=== PATIENT | female | born 1985 | race Caucasian/White ===

== ENCOUNTER → 2018-02-22 | Outpatient (CLI) | payer BC ==
--- NOTE | 2018-02-23 07:33 | US ---
EXAMINATION TYPE: US thyroid st tissue head/neck DATE OF EXAM: 02/22/2018 COMPARISON: NONE CLINICAL HISTORY: E04.1 Goiter. GLAND SIZE: Right Lobe: 5.4 x 1.5 x 1.9 cm Overall Parenchyma: homogenous Left Lobe: 5.3 x 1.1 x 1.6 cm Overall Parenchyma: homogeneous Isthmus Thickness: 0.1 cm NODULES RIGHT: # of nodules measured on right: 0 LEFT: # of nodules measured on left: 0 ISTHMUS: # of nodules measured in the isthmus: 0 Bilateral neck scanned, no evidence of lymphadenopathy. Bilateral enlargement in sagittal view of thyroid gland IMPRESSION: Mildly enlarged homogeneous thyroid gland without measurable nodule.
== END | disposition home or self-care (01) ==
LOC: RADUSWWP 15:33
PROVIDERS: ATTEND Family Medicine
DX: E04.9 Nontoxic goiter, unspecified (principal)
CPT/HCPCS: 76536

== ENCOUNTER → 2018-03-06 | Outpatient (CLI) | payer BC ==
--- NOTE | 2018-03-07 09:40 | MM ---
Reason for exam: screening (asymptomatic). Baseline mammogram. History: Took hormonal contraceptives beginning at age 13. Physical Findings: Nurse Summary: 2cm nodule in the right breast at 10-11 o'clock (nurse dewey). MG 3D Screening Mammo W/Cad Bilateral CC and MLO view(s) were taken. The breast tissue is heterogeneously dense. This may lower the sensitivity of mammography. Finding: There is a typically benign circumscribed oval masses in the right upper outer quadrant at posterior depth and left lower inner quadrant at middle depth. Ultrasound will be performed. These results were verbally communicated with the patient and result sheet given to the patient on 03/06/18. ASSESSMENT: Incomplete: need additional imaging evaluation, BI-RAD 0 RECOMMENDATION: Ultrasound of both breasts.
--- NOTE | 2018-03-07 09:41 | USB ---
Reason for exam: additional evaluation requested from abnormal screening. History: Took hormonal contraceptives beginning at age 13. US Breast Workup Limited ELFEGO Right limited breast ultrasound including focal area of concern, retroareolar and axilla demonstrates a 5 x 3 x 7mm oval, mixed lesion at 12 o'clock, appears as a cystic cluster. Left limited breast ultrasound including focal area of concern, retroareolar and axilla demonstrates a 9 x 4 x 8mm lobular, cystic lesion at 8 o'clock. These results were verbally communicated with the patient and result sheet given to the patient on 03/06/18. ASSESSMENT: Benign, BI-RAD 2 RECOMMENDATION: Routine screening mammogram of both breasts in 1 year.
== END | disposition home or self-care (01) ==
LOC: RADMAMWWP 14:16
PROVIDERS: ATTEND Family Medicine
DX: Z12.31 Encounter for screening mammogram for malignant neoplasm of breast (principal); R92.8 Other abnormal and inconclusive findings on diagnostic imaging of breast
CPT/HCPCS: 77063; 77067

== ENCOUNTER 2019-07-17 11:42 | Emergency (ER) | payer BC ==
[2019-07-17 11:58] VITALS: RESP 18
[2019-07-17] MEDS ORDERED: ONDANSETRON 4 MG/2 ML VIAL IVP STA (12:09)
[2019-07-17] MEDS ORDERED: KETOROLAC 30 MG/ML 1 ML VIAL IVP STA (12:09)
[2019-07-17] MEDS ORDERED: MORPHINE SULFATE 2 MG/ML SYRINGE IVP STA (12:09)
[2019-07-17] MEDS ORDERED: PANTOPRAZOLE 40 MG/10 ML VIAL IVP STA (12:09)
[2019-07-17] MEDS ORDERED: SODIUM CHLORIDE 0.9% 1,000 ML IV STA (12:09)
--- NOTE | 2019-07-17 12:33 | ED ---
Back Pain HPI - General Chief Complaint: Back Pain/Injury Stated Complaint: back pain and abd pain Time Seen by Provider: 07/17/19 12:00 Source: patient, RN notes reviewed, old records reviewed Limitations: no limitations - History of Present Illness Initial Comments: Patient is a 34-year-old female presents emergency room chief complaint of right lower abdominal pain with radiation towards her back for the past 2 days. Patient states that she started to have some diarrhea night. Patient states that now she is having nausea. She states the pain seems to be colicky in aníbal ure. - Related Data Previous Rx's Medication Instructions Recorded Ibuprofen [Motrin] 600 mg PO Q8HR PRN #20 tab 07/17/19 Ondansetron Odt [Zofran Odt] 4 mg PO Q8HR PRN #12 tab 07/17/19 Tamsulosin [Flomax] 0.4 mg PO DAILY #7 cap 07/17/19 Allergies Allergy/AdvReac Type Severity Reaction Status Date / Time No Known Allergies Allergy Verified 07/17/19 11:58 Review of Systems ROS Statement: Those systems with pertinent positive or pertinent negative responses have been documented in the HPI. ROS Other: All systems not noted in ROS Statement are negative. Past Medical History Additional Past Medical History / Comment(s): pre-diabetic History of Any Multi-Drug Resistant Organisms: None Reported Past Surgical History: Tubal Ligation Additional Past Surgical History / Comment(s): ankle Smoking Status: Current every day smoker Past Alcohol Use History: None Reported Past Drug Use History: None Reported General Exam - General Exam Comments Initial Comments: 34 year old female, no distress. Limitations: no limitations General appearance: alert, in no apparent distress Head exam: Present: atraumatic, normocephalic, normal inspection Eye exam: Present: normal appearance, PERRL, EOMI. Absent: scleral icterus, conjunctival injection, periorbital swelling ENT exam: Present: normal exam, mucous membranes moist Neck exam: Present: normal inspection. Absent: tenderness, meningismus, lymphadenopathy Respiratory exam: Present: normal lung sounds bilaterally. Absent: respiratory distress, wheezes, rales, rhonchi, stridor Cardiovascular Exam: Present: regular rate, normal rhythm, normal heart sounds. Absent: systolic murmur, diastolic murmur, rubs, gallop, clicks GI/Abdominal exam: Present: soft, tenderness (RLQ tenderness), normal bowel sounds. Absent: distended, guarding, rebound, rigid Extremities exam: Present: normal inspection, full ROM, normal capillary refill. Absent: tenderness, pedal edema, joint swelling, calf tenderness Back exam: Present: CVA tenderness (R) Neurological exam: Present: alert, oriented X3, CN II-XII intact Psychiatric exam: Present: normal affect, normal mood Skin exam: Present: warm, dry, intact, normal color. Absent: rash Course Vital Signs 07/17/19 07/17/19 07/17/19 11:54 13:30 14:09 Temperature 98.4 F 99.0 F Pulse Rate 69 65 69 Respiratory 18 18 18 Rate Blood Pressure 125/83 110/78 107/69 O2 Sat by Pulse 100 99 99 Oximetry Medical Decision Making - Medical Decision Making 34 year old female presents today with Right lower abdominal pain with radition to the back. PAtient at this time has normal labs, except UA is positive for blood. Patient had CT scan and shows evidence of a 2mm Right UPJ stone. Patient pain is diminished after pain meds, and resting in bed.She appears in no distress. Patient given flomax, antiflammatory and pain medication for discharge. Instructed on return parameters and urology follow up. - Lab Data Result diagrams: 07/17/19 12:13 07/17/19 12:13 Lab Results 07/17/19 07/17/19 07/17/19 Range/Units 12:13 12:13 12:13 WBC 9.5 (3.8-10.6) k/uL RBC 4.53 (3.80-5.40) m/uL Hgb 14.3 (11.4-16.0) gm/dL Hct 42.7 (34.0-46.0) % MCV 94.3 (80.0-100.0) fL MCH 31.6 (25.0-35.0) pg MCHC 33.6 (31.0-37.0) g/dL RDW 12.6 (11.5-15.5) % Plt Count 267 (150-450) k/uL Neutrophils % 76 % Lymphocytes % 17 % Monocytes % 5 % Eosinophils % 1 % Basophils % 1 % Neutrophils # 7.2 (1.3-7.7) k/uL Lymphocytes # 1.6 (1.0-4.8) k/uL Monocytes # 0.5 (0-1.0) k/uL Eosinophils # 0.1 (0-0.7) k/uL Basophils # 0.1 (0-0.2) k/uL PT (9.0-12.0) sec INR (<1.2) APTT (22.0-30.0) sec Sodium (137-145) mmol/L Potassium (3.5-5.1) mmol/L Chloride (98-107) mmol/L Carbon Dioxide (22-30) mmol/L Anion Gap mmol/L BUN (7-17) mg/dL Creatinine (0.52-1.04) mg/dL Est GFR (CKD-EPI)AfAm (>60 ml/min/1.73 sqM) Est GFR (CKD-EPI)NonAf (>60 ml/min/1.73 sqM) Glucose (74-99) mg/dL Calcium (8.4-10.2) mg/dL Total Bilirubin (0.2-1.3) mg/dL AST (14-36) U/L ALT (4-34) U/L Alkaline Phosphatase (38-126) U/L Total Protein (6.3-8.2) g/dL Albumin (3.5-5.0) g/dL Amylase (30-110) U/L Lipase (23-300) U/L HCG, Quant mIU/mL Urine Color Light Red Urine Appearance Cloudy H (Clear) Urine pH 5.5 (5.0-8.0) Ur Specific [place] 1.022 (1.001-1.035) Urine Protein 1+ H (Negative) Urine Glucose (UA) Negative (Negative) Urine Ketones Negative (Negative) Urine Blood Large H (Negative) Urine Nitrite Negative (Negative) Urine Bilirubin Negative (Negative) Urine Urobilinogen <2.0 (<2.0) mg/dL Ur Leukocyte Esterase Small H (Negative) Urine RBC >182 H (0-5) /hpf Urine WBC 23 H (0-5) /hpf Ur Squamous Epith Cells 11 H (0-4) /hpf Urine Bacteria Rare H (None) /hpf Urine Mucus Few H (None) /hpf Urine HCG, Qual Not Detected (Not Detectd) 04/29/20 04/29/20 Range/Units 12:13 12:13 WBC (3.8-10.6) k/uL RBC (3.80-5.40) m/uL Hgb (11.4-16.0) gm/dL Hct (34.0-46.0) % MCV (80.0-100.0) fL MCH (25.0-35.0) pg MCHC (31.0-37.0) g/dL RDW (11.5-15.5) % Plt Count (150-450) k/uL Neutrophils % % Lymphocytes % % Monocytes % % Eosinophils % % Basophils % % Neutrophils # (1.3-7.7) k/uL Lymphocytes # (1.0-4.8) k/uL Monocytes # (0-1.0) k/uL Eosinophils # (0-0.7) k/uL Basophils # (0-0.2) k/uL PT 9.5 (9.0-12.0) sec INR 0.9 (<1.2) APTT 25.0 (22.0-30.0) sec Sodium 137 (137-145) mmol/L Potassium 4.1 (3.5-5.1) mmol/L Chloride 106 (98-107) mmol/L Carbon Dioxide 22 (22-30) mmol/L Anion Gap 9 mmol/L BUN 12 (7-17) mg/dL Creatinine 0.88 (0.52-1.04) mg/dL Est GFR (CKD-EPI)AfAm >90 (>60 ml/min/1.73 sqM) Est GFR (CKD-EPI)NonAf 85 (>60 ml/min/1.73 sqM) Glucose 117 H (74-99) mg/dL Calcium 9.4 (8.4-10.2) mg/dL Total Bilirubin 0.6 (0.2-1.3) mg/dL AST 34 (14-36) U/L ALT 47 H (4-34) U/L Alkaline Phosphatase 84 (38-126) U/L Total Protein 7.5 (6.3-8.2) g/dL Albumin 4.5 (3.5-5.0) g/dL Amylase 38 (30-110) U/L Lipase 43 (23-300) U/L HCG, Quant <2.4 mIU/mL Urine Color Urine Appearance (Clear) Urine pH (5.0-8.0) Ur Specific [place] (1.001-1.035) Urine Protein (Negative) Urine Glucose (UA) (Negative) Urine Ketones (Negative) Urine Blood (Negative) Urine Nitrite (Negative) Urine Bilirubin (Negative) Urine Urobilinogen (<2.0) mg/dL Ur Leukocyte Esterase (Negative) Urine RBC (0-5) /hpf Urine WBC (0-5) /hpf Ur Squamous Epith Cells (0-4) /hpf Urine Bacteria (None) /hpf Urine Mucus (None) /hpf Urine HCG, Qual (Not Detectd) - Radiology Data Radiology results: report reviewed Bilateral small renal calculi with 2mm obstructing calculus at right UPJ causing mild to moderate right hydronephrosis. Disposition Clinical Impression: Ureteral stone Disposition: HOME SELF-CARE Condition: Good Instructions (If sedation given, give patient instructions): Ureteral Stones (ED) Additional Instructions: Patient is a close follow-up with primary care physician. Encourage fluid intake. Take the medications as prescribed. Return to ED if any alarming signs or symptoms occur. Prescriptions: Tamsulosin [Flomax] 0.4 mg PO DAILY #7 cap Ibuprofen [Motrin] 600 mg PO Q8HR PRN #20 tab PRN Reason: Pain Ondansetron Odt [Zofran Odt] 4 mg PO Q8HR PRN #12 tab PRN Reason: Nausea And Vomiting Is patient prescribed a controlled substance at d/c from ED?: No Referrals: Mushtaq Alaniz MD [Primary Care Provider] - 1-2 days Mik Jones MD [STAFF PHYSICIAN] - 1-2 days Time of Disposition: 13:35
[2019-07-17] MEDS: SODIUM CHLORIDE 0.9% 1,000 ML IV STA ×2 (12:34→14:01)
[2019-07-17 12:35] LABS: Appearance,Urine Cloudy (Clear); Bacteria,Urine Rare /hpf; Bilirubin,Urine Negative (Negative); Blood,Urine Large (Negative); Color,Urine Light Red; Glucose,Urine (UA) Negative (Negative); Ketones,Urine Negative (Negative); Leukocyte Esterase,Urine Small (Negative); Mucus,Urine Few /hpf; Nitrite,Urine Negative (Negative); PH, Urine 5.5 (5.0-8.0); Protein,Urine 1+ (Negative); RBC,Urine >182 /hpf (0-5); Specific Gravity,Urine 1.022 (1.001-1.035); Squamous Epithelial Cell,Urine 11 /hpf (0-4); Urobilinogen,Urine <2.0 mg/dL (<2.0); WBC,Urine 23 /hpf (0-5)
[2019-07-17 12:47] LABS: Basophils # (A) 0.1 k/uL (0-0.2); Basophils % (A) 1 %; Eosinophils # (A) 0.1 k/uL (0-0.7); Eosinophils % (A) 1 %; HCT 42.7 % (34.0-46.0); HGB 14.3 gm/dL (11.4-16.0); Lymphocytes # (A) 1.6 k/uL (1.0-4.8); Lymphocytes % (A) 17 %; MCH 31.6 pg (25.0-35.0); MCHC 33.6 g/dL (31.0-37.0); MCV 94.3 fL (80.0-100.0); Mean Platelet Volume 7.5; Monocytes # (A) 0.5 k/uL (0-1.0); Monocytes % (A) 5 %; Neutrophils # (A) 7.2 k/uL (1.3-7.7); Neutrophils % (A) 76 %; Platelet Count 267 k/uL (150-450); RBC 4.53 m/uL (3.80-5.40); RDW 12.6 % (11.5-15.5); WBC 9.5 k/uL (3.8-10.6)
[2019-07-17 12:57] LABS: ALT 47 U/L (4-34); AST 34 U/L (14-36); African American GFR (CKD) >90 (>60 ml/min/1.73 sqM); Albumin 4.5 g/dL (3.5-5.0); Alkaline Phosphatase 84 U/L (38-126); Amylase 38 U/L (30-110); Anion Gap 9 mmol/L; Blood Urea Nitrogen 12 mg/dL (7-17); Calcium 9.4 mg/dL (8.4-10.2); Carbon Dioxide 22 mmol/L (22-30); Chloride 106 mmol/L (98-107); Glucose 117 mg/dL (74-99); Non-African American GFR(CKD) 85 (>60 ml/min/1.73 sqM); Potassium 4.1 mmol/L (3.5-5.1); Sodium 137 mmol/L (137-145); Total Bilirubin 0.6 mg/dL (0.2-1.3); Total Protein 7.5 g/dL (6.3-8.2)
[2019-07-17 13:05] LABS: INR 0.9 (<1.2); Prothrombin Time 9.5 sec (9.0-12.0)
--- NOTE | 2019-07-17 13:06 | CT ---
EXAMINATION TYPE: CT abdomen pelvis wo con DATE OF EXAM: 07/17/2019 HISTORY: RLQ pain and right flank pain. CT DLP: 702.6 mGycm. Automated Exposure Control for Dose Reduction was Utilized. TECHNIQUE: CT scan of the abdomen and pelvis is performed without oral or IV contrast. COMPARISON: NONE FINDINGS: Within the limitations of a non-contrast study, the following observations are made. LUNG BASES: No significant abnormality is appreciated. LIVER/GB: Heterogeneously hypodense liver measuring upper limits of normal in size consistent with di ffuse fatty infiltration. PANCREAS: No significant abnormality is seen. SPLEEN: No significant abnormality is seen. ADRENALS: No significant abnormality is seen. KIDNEYS: Roughly 6 calculi scattered throughout left kidney measuring up to 3 mm in size. There are 4 calculi throughout right kidney measuring between 2 to 3 mm. There is 2 mm calculus at right UVJ axi al image 141 causing mild to moderate right-sided pyelocaliectasis and diffuse hydroureter. No left-s ided hydronephrosis or obstructing urinary calculi. Occasional pelvic phleboliths. No additional calc ulus in the poorly distended bladder. BOWEL: Normal-appearing appendix from cecum. No suspicious small or large bowel dilatation. Mild wall thickening mid transverse colon in extends through distal sigmoid colon favored product of poor dist ention over mild uncomplicated acute colitis. Correlate clinically. GENITAL ORGANS: Slightly retroverted uterus with lobulation and prominence suggesting fibroid uterus. LYMPH NODES: No greater than 1cm abdominal or pelvic lymph nodes are appreciated. OSSEOUS STRUCTURES: Transitional type L6 vertebra at the lumbosacral junction. OTHER: No significant additional abnormality is seen. IMPRESSION: Bilateral small renal calculi with 2 mm obstructing calculus at right UPJ causing mild-to -moderate right-sided hydronephrosis.
[2019-07-17 13:13] LABS: HCG,Quantitative Serum <2.4 mIU/mL
[2019-07-17] MEDS ORDERED: ACET/COD 300 MG/30 MG STARTER PACK 6 TAB BTL PO STA (13:37)
[2019-07-17 14:10] VITALS: BP 107/69; PULSE 69; TEMP 99
== END 2019-07-17 14:08 | disposition home or self-care (01) ==
LOC: EC 11:42
DX: N20.1 Calculus of ureter (principal); F17.200 Nicotine dependence, unspecified, uncomplicated; Z98.51 Tubal ligation status
CPT/HCPCS: 36415; 80053; 82150; 83690; 85025; 85610; 85730; 81001; 81025; 84702; 87086; 74176; 99284; 96374; 96375 ×3; 96361; J2405; J1885; J2270; C9113

== ENCOUNTER → 2020-07-03 | Outpatient (CLI) | payer BC ==
--- NOTE | 2020-07-06 14:19 | MM ---
Reason for exam: screening (asymptomatic). Last mammogram was performed 2 years and 4 months ago. History: Family history of breast cancer in maternal aunt and breast cancer in maternal cousin. Took hormonal contraceptives beginning at age 13. Physical Findings: A clinical breast exam by your physician is recommended on an annual basis and results should be correlated with mammographic findings. MG 3D Screening Mammo W/Cad Bilateral CC and MLO view(s) were taken. Prior study comparison: March 06, 2018, bilateral MG 3d screening mammo w/cad. The breast tissue is heterogeneously dense. This may lower the sensitivity of mammography. Finding: There is a 8 mm obscured oval mass located 9 cm from the nipple in the outer quadrant, middle position of the right breast on MLO 35/86 and CC 31/78. There is a chronic nodularity in the left breast corresponds to 9 x 4mm thin walled cyst on 03/06/18 ultrasound, stable. New finding since March 06, 2018. ASSESSMENT: Incomplete: need additional imaging evaluation, BI-RAD 0 RECOMMENDATION: Ultrasound of the right breast. [facility] will attempt to contact patient to return for ultrasound.
== END | disposition home or self-care (01) ==
LOC: RADMAMWWP 10:51
PROVIDERS: ATTEND Family Medicine
DX: Z12.31 Encounter for screening mammogram for malignant neoplasm of breast (principal)
CPT/HCPCS: 77063; 77067

== ENCOUNTER → 2020-07-09 | Outpatient (CLI) | payer BC ==
--- NOTE | 2020-07-09 10:41 | USB ---
Reason for exam: additional evaluation requested from abnormal screening. History: Family history of breast cancer in maternal aunt and breast cancer in maternal cousin. Took hormonal contraceptives beginning at age 13. Physical Findings: Nurse did not find any significant physical abnormalities on exam. US Breast Workup Limited RT Right limited breast ultrasound including focal area of concern, retroareolar and axilla demonstrates a 0.6 x 0.3 x 0.7cm oval lesion too small to characterize, cystic cluster at 9 o'clock. These results were verbally communicated with the patient and result sheet given to the patient on 07/09/20. ASSESSMENT: Probably benign, BI-RAD 3 RECOMMENDATION: Follow-up diagnostic mammogram and ultrasound of the right breast in 6 months.
== END | disposition home or self-care (01) ==
LOC: RADUSWWP 09:00
PROVIDERS: ATTEND Family Medicine
DX: R92.8 Other abnormal and inconclusive findings on diagnostic imaging of breast (principal)

== ENCOUNTER → 2020-09-23 | Outpatient (CLI) | payer BC | END | disposition home or self-care (01) ==

== ENCOUNTER → 2020-11-16 | Outpatient (CLI) | payer BC ==
[2020-11-16 12:32] LABS: HCT 43.9 % (34.0-46.0); HGB 14.2 gm/dL (11.4-16.0); MCH 30.8 pg (25.0-35.0); MCHC 32.3 g/dL (31.0-37.0); MCV 95.4 fL (80.0-100.0); Mean Platelet Volume 7.9; Platelet Count 256 k/uL (150-450); RDW 13.1 % (11.5-15.5); WBC 8.8 k/uL (3.8-10.6)
== END | disposition home or self-care (01) ==
LOC: LABPAT 12:02
PROVIDERS: ATTEND Obstetrics & Gynecology
DX: Z01.812 Encounter for preprocedural laboratory examination (principal); N92.0 Excessive and frequent menstruation with regular cycle
CPT/HCPCS: 36415; 85027

== ENCOUNTER 2020-11-20 08:04 | Day surgery (SDC) | payer BC ==
[2020-11-16 15:25] VITALS: BMI 32.4
[~2020-11-20 08:04] MED LIST: DEXAMETHASONE SOD PHOSPHATE 4 MG/ML 1 ML VIAL IV ONE; HYDROmorphone 0.5 MG/0.5 ML SYRINGE IVP PRN; MIDAZOLAM 2 MG/2 ML VIAL IV PRN; ONDANSETRON 4 MG/2 ML VIAL IVP ONE; Pre Op ABX Message 1 EACH MISC MISCELLANE ONE; SCOPOLAMINE 1.5MG/72HR PATCH TRANSDERM ONE
[2020-11-20 08:49] LABS: Glucose,Whole Blood 132 mg/dL (75-99)
[2020-11-20] MEDS: LACTATED RINGERS 1,000 ML IV SCH ×2 (08:49→11:00)
[2020-11-20] MEDS ORDERED: fentaNYL (PF) 50 MCG/ML 2 ML AMP ONE (09:08)
[2020-11-20] MEDS ORDERED: LIDOCAINE 1% INJ 10MG/ML (20 ML MDV) ONE (09:08)
[2020-11-20] MEDS ORDERED: MIDAZOLAM 2 MG/2 ML VIAL ONE (09:08)
[2020-11-20] MEDS ORDERED: PROPOFOL 10 MG/ML 20 ML VIAL IV ONE (09:08)
[2020-11-20] MEDS ORDERED: KETOROLAC 15 MG/ML 1 ML VIAL ONE (09:08)
[2020-11-20 09:42] VITALS: TEMP 96.9
--- NOTE | 2020-11-20 09:42 | P.OP ---
Date of Procedure: 11/20/20 Preoperative Diagnosis: Hypermenorrhea, dysmenorrhea Postoperative Diagnosis: Same, normal-appearing uterine cavity Procedure(s) Performed: Hysteroscopy, NovaSure endometrial ablation Anesthesia: ADILENEA Surgeon: Colleen Burnette Estimated Blood Loss (ml): 20 IV fluids (ml): 350 Urine output (ml): 100 Pathology: none sent Condition: stable Disposition: PACU Description of Procedure: Patient is brought to the operating suite where a general anesthetic is administered without difficulty. She's placed in the dorsal lithotomy position. The perineal body cervix and vagina are prepped and draped in usual sterile fashion. The appropriate timeout is performed to assure proper patient and procedural identification. Urine hCG is negative. Bladder is drained for 100 mL of clear yellow urine. Examination under anesthesia reveals a retroverted uterus. Speculum is placed. Anterior lip of the cervix is grasped with a double-tooth tenaculum. Uterus sounds to a depth of 9 cm in the retroverted position. Cervix is gently and systematically dilated using Hanks dilators. The uterus sounds to a depth of 9 cm in the retroverted position. The hysteroscope was placed and the cavity is distended with sterile saline. The cavity is inspected and noted to contain a moderate amount of proliferative-type tissue. No obvious polyps or fibroids are noted. Hysteroscope was removed. NovaSure wand is placed and seated. The machine is properly calibrated and enabled. Uterine length of 6.5 cm, width of 4.3 cm. Power 154 W, for 75 seconds the procedure is carried out. When the machine turns off the wand is reduced and removed. Hysteroscope was once again placed. Cavity appears uniformly and thoroughly cauterized. Cervix is clean and dry upon completion of the procedure. All sponge needle and enhancement counts are correct. Toradol is given prior to leaving the operative suite. Patient is brought back to the recovery room in very good condition with stable vital signs including blood pressure 138/69, pulse 75, 99% O2 saturation. Patient will follow-up with me in the office in 2 weeks.
[2020-11-20 10:00] VITALS: RESP 16
[2020-11-20] MEDS ORDERED: HYDROcodone/APAP 5-325MG 1 EACH TAB ONE (10:50)
[2020-11-20] MEDS ORDERED: HYDROcodone/APAP 5-325MG 1 EACH TAB PO ONE (10:55)
[2020-11-20 11:06] VITALS: BP 139/84; PULSE 56
== END 2020-11-20 11:33 | disposition home or self-care (01) ==
LOC: OR 08:04
PROVIDERS: ATTEND Obstetrics & Gynecology
DX: N94.6 Dysmenorrhea, unspecified (principal); N92.0 Excessive and frequent menstruation with regular cycle; E11.9 Type 2 diabetes mellitus without complications; F17.200 Nicotine dependence, unspecified, uncomplicated; K58.9 Irritable bowel syndrome, unspecified
CPT/HCPCS: 58563; 81025; J2250; J1100; J2405; J2001; J3010; J1885; J2704

== ENCOUNTER 2022-08-07 20:45 | Emergency (ER) | payer BC ==
[2022-08-07 23:03] LABS: Basophils # (A) 0.1 k/uL (0-0.2); Basophils % (A) 1 %; Eosinophils # (A) 0.2 k/uL (0-0.7); Eosinophils % (A) 2 %; HCT 41.4 % (34.0-46.0); HGB 14.1 gm/dL (11.4-16.0); Lymphocytes # (A) 3.6 k/uL (1.0-4.8); Lymphocytes % (A) 34 %; MCH 31.5 pg (25.0-35.0); MCHC 34.2 g/dL (31.0-37.0); Mean Platelet Volume 7.5; Monocytes # (A) 0.5 k/uL (0-1.0); Monocytes % (A) 5 %; Neutrophils % (A) 57 %; Platelet Count 305 k/uL (150-450); RDW 12.2 % (11.5-15.5); WBC 10.5 k/uL (3.8-10.6)
[2022-08-07 23:34] LABS: ALT 26 U/L (4-34); AST 20 U/L (14-36); African American GFR (CKD) >90 (>60 ml/min/1.73 sqM); Albumin 4.4 g/dL (3.5-5.0); Alkaline Phosphatase 77 U/L (38-126); Anion Gap 12 mmol/L; Blood Urea Nitrogen 13 mg/dL (7-17); Calcium 9.5 mg/dL (8.4-10.2); Carbon Dioxide 25 mmol/L (22-30); Chloride 102 mmol/L (98-107); Glucose 108 mg/dL (74-99); Lipase 81 U/L (23-300); Non-African American GFR(CKD) 82 (>60 ml/min/1.73 sqM); Potassium 4.2 mmol/L (3.5-5.1); Sodium 139 mmol/L (137-145); Total Bilirubin 0.3 mg/dL (0.2-1.3); Total Protein 7.2 g/dL (6.3-8.2)
[2022-08-08 00:06] LABS: Appearance,Urine Clear (Clear); Bilirubin,Urine Negative (Negative); Blood,Urine Negative (Negative); Color,Urine Light Yellow; Glucose,Urine (UA) Negative (Negative); Ketones,Urine Negative (Negative); Leukocyte Esterase,Urine Negative (Negative); Nitrite,Urine Negative (Negative); PH, Urine 5.5 (5.0-8.0); Protein,Urine Negative (Negative); Specific Gravity,Urine 1.009 (1.001-1.035); Urobilinogen,Urine <2.0 mg/dL (<2.0)
--- NOTE | 2022-08-08 01:21 | US ---
EXAM: US Pelvis Transabdominal and Transvaginal, Complete and US Duplex Arterial/Venous of the Pelvis, Complete CLINICAL HISTORY: US Reason: right pelvic pain TECHNIQUE: Real-time complete transabdominal and transvaginal pelvic ultrasound with image documentation. Transvaginal imaging was used for better evaluation of the endometrium and adnexa. Real-time duplex ultrasound scan of the arterial and venous flow of the pelvis with color Doppler flow and spectral waveform analysis. COMPARISON: No relevant prior studies available. FINDINGS: Uterus/cervix: The uterus measures 7.2 x 5.2 x 5.6 cm, 108 mL and is anteverted. The myometrium is unremarkable. There is an approximately 2 cm diameter fluid pocket in the endometrial cavity demonstrating a hematocrit level suggesting hematometra. Right ovary: The right ovary measures 2.5 x 2.2 x 2.1 cm, 5.9 mL with normal appearance and normal Doppler blood flow. Left ovary: The left ovary measures 3.5 x 1.6 x 2.8 cm with normal Doppler blood flow normal appearance. Free fluid: No free fluid. Bladder: Unremarkable as visualized. Wall is normal thickness for degree of distention. IMPRESSION: There is an approximately 2 cm diameter fluid pocket in the endometrial cavity demonstrating a hematocrit level suggesting hematometra. Unremarkable appearance of the ovaries. No evidence of torsion. No free fluid.
[2022-08-08] MEDS ORDERED: ACET/COD 300 MG/30 MG STARTER PACK 6 TAB BTL PO STA (02:03)
--- NOTE | 2022-08-08 02:05 | ED ---
Abdominal Pain HPI - General Chief Complaint: Abdominal Pain Stated Complaint: Abdominal Pain Time Seen by Provider: 08/07/22 22:00 Source: patient Mode of arrival: ambulatory Limitations: no limitations - History of Present Illness Initial Comments: 37 year old female presents emergency department with right lower quadrant pain. States has been going on for the past 2 weeks. Started off intermittent and has now become constant. States that it is worse when she ambulates. She was taking Motrin which originally was helping however no longer provides any relief. She denies any vaginal bleeding or discharge. She has had an ablation approximately [address] Almanza. Denies any urinary complaints to include dysuria, hematuria or difficulty voiding. Denies black or bloody stools. No constipation or diarrhea. She denies fevers. No other alleviating, precipitating or modifying factors - Related Data Home Medications Medication Instructions Recorded Confirmed Cholecalciferol [Vitamin D3 (25 50 mcg PO HS 11/16/20 11/16/20 Mcg = 1000 Iu)] Fluticasone Nasal [place] [Flonase 1 spray EA NOSTRIL DAILY PRN 11/16/20 11/16/20 Nasal [place]] Loratadine [Claritin] 10 mg PO HS 11/16/20 11/16/20 clonazePAM 0.5 mg PO HS 11/16/20 11/16/20 Previous Rx's Medication Instructions Recorded Acetaminophen-Codeine 300-30mg 1 tab PO Q4H PRN 3 Days #18 tablet 08/08/22 [Tylenol w/codeine #3] Allergies Allergy/AdvReac Type Severity Reaction Status Date / Time adhesive Allergy Unknown Verified 08/07/22 22:03 Review of Systems ROS Statement: Those systems with pertinent positive or pertinent negative responses have been documented in the HPI. ROS Other: All systems not noted in ROS Statement are negative. Past Medical History Additional Past Medical History / Comment(s): pre-diabetic, kidney stones History of Any Multi-Drug Resistant Organisms: None Reported Past Surgical History: Orthopedic Surgery, Tubal Ligation, Uterine Ablation Additional Past Surgical History / Comment(s): rt ankle Past Psychological History: No Psychological Hx Reported Past Alcohol Use History: None Reported General Exam Limitations: no limitations General appearance: alert, in no apparent distress Head exam: Present: atraumatic, normocephalic, normal inspection Eye exam: Present: normal appearance, PERRL, EOMI. Absent: scleral icterus, conjunctival injection, periorbital swelling ENT exam: Present: normal exam, mucous membranes moist Neck exam: Present: normal inspection. Absent: tenderness, meningismus, lymphadenopathy Respiratory exam: Present: normal lung sounds bilaterally. Absent: respiratory distress, wheezes, rales, rhonchi, stridor Cardiovascular Exam: Present: regular rate, normal rhythm, normal heart sounds. Absent: systolic murmur, diastolic murmur, rubs, gallop, clicks GI/Abdominal exam: Present: soft, tenderness (rlq), normal bowel sounds. Absent: distended, guarding, rebound, rigid Extremities exam: Present: normal inspection, full ROM, normal capillary refill. Absent: tenderness, pedal edema, joint swelling, calf tenderness Back exam: Present: normal inspection Neurological exam: Present: alert, oriented X3, CN II-XII intact Psychiatric exam: Present: normal affect, normal mood Skin exam: Present: warm, dry, intact, normal color. Absent: rash Course Vital Signs 08/07/22 08/08/22 21:59 02:12 Temperature 97.9 F 98.4 F Pulse Rate 80 72 Respiratory 20 16 Rate Blood Pressure 116/84 121/76 O2 Sat by Pulse 100 97 Oximetry Medical Decision Making - Medical Decision Making Was pt. sent in by a medical professional or institution (MICHELE Cruz, WATER TRAINER, urgent care, hospital, or fpc...) When possible be specific @ -No Did you speak to anyone other than the patient for history (EMS, parent, family, police, friend...)? What history was obtained from this source @ -No Did you review nursing and triage notes (agree or disagree)? Why? @ -I reviewed and agree with nursing and triage notes Were old charts reviewed (outside hosp., previous admission, EMS record, old EKG, old radiological studies, urgent care reports/EKG's, fpc records)? Report findings @ -No old charts were reviewed Differential Diagnosis (chest pain, altered mental status, abdominal pain women, abdominal pain men, vaginal bleeding, weakness, fever, dyspnea, syncope, headache, dizziness, GI bleed, back pain, seizure, CVA, palpatations, mental health, musculoskeletal)? @ -appendicitis, ovarian torsion, ovarian cyst, ectopic , endometriosis EKG interpreted by me (3pts min.). @ -No X-rays interpreted by me (1pt min.). @ -None done CT interpreted by me (1pt min.). @ -None done U/S interpreted by me (1pt. min.). @ -yes What testing was considered but not performed or refused? (CT, X-rays, U/S, labs)? Why? @ -None What meds were considered but not given or refused? Why? @ -Pain meds - patient refused Did you discuss the management of the patient with other professionals (professionals i.e. , PA, WATER TRAINER, lab, RT, psych nurse, social worker assistant, manager new product, teacher, rating officer, director of casework department)? Give summary @ -No Was smoking cessation discussed for >3mins.? @ -No Was critical care preformed (if so, how long)? @ -No Were there social determinants of health that impacted care today? How? (Homelessness, low income, unemployed, alcoholism, drug addiction, transportation, low edu. Level, literacy, decrease access to med. care, skilled nursing, r ehab)? @ -No Was there de-escalation of care discussed even if they declined (Discuss DNR or withdrawal of care, Hospice)? DNR status @ -No What co-morbidities impacted this encounter? (DM, HTN, Smoking, COPD, CAD, Cancer, CVA, ARF, Chemo, Hep., AIDS, mental health diagnosis, sleep apnea, morbid obesity)? @ -None Was patient admitted / discharged? Hospital course, mention meds given and route, prescriptions, significant lab abnormalities, going to OR and other pertinent info. @ -Upon arrival patient was placed into room 4. A thorough history and physical exam was performed. IV access is established and laboratory studies are conducted. She is offered something for pain however she refuses. Laboratory studies are reviewed. Ultrasound demonstrates a 2 cm diameter fluid pocket in the endometrial cavity demonstrating a hematocrit level suggesting hematometra. This is discussed with the patient. At this time she will be discharged home. Did provide her with a prescription for Tylenol 3's. She will call and make an appointment with her BUSINESS MANAGEMENT ASSOCIATE for treatment and return for any new or worsening symptoms. Patient was agreeable with plan and she was discharged home stable condition. Undiagnosed new problem with uncertain prognosis? @ -No Drug Therapy requiring intensive monitoring for toxicity (Heparin, Nitro, Insulin, Cardizem)? @ -No Were any procedures done? @ -No Diagnosis/symptom? @ -acute rlq pain, acute hematometra Acute, or Chronic, or Acute on Chronic? @ -acute Uncomplicated (without systemic symptoms) or Complicated (systemic symptoms)? @ -complicated Side effects of treatment? @ -No Exacerbation, Progression, or Severe Exacerbation? @ -No Poses a threat to life or bodily function? How? (Chest pain, [place], [place], pneumonia, PE, COPD, DKA, ARF, appy, cholecystitis, CVA, Diverticulitis, Homicidal, Suicidal, threat to staff... and all critical care pts) @ -No - Lab Data Result diagrams: 08/07/22 22:45 08/07/22 22:45 Lab Results 08/07/22 08/07/22 08/07/22 Range/Units 22:45 22:45 23:10 WBC 10.5 (3.8-10.6) k/uL RBC 4.50 (3.80-5.40) m/uL Hgb 14.1 (11.4-16.0) gm/dL Hct 41.4 (34.0-46.0) % MCV 92.0 (80.0-100.0) fL MCH 31.5 (25.0-35.0) pg MCHC 34.2 (31.0-37.0) g/dL RDW 12.2 (11.5-15.5) % Plt Count 305 (150-450) k/uL MPV 7.5 Neutrophils % 57 % Lymphocytes % 34 % Monocytes % 5 % Eosinophils % 2 % Basophils % 1 % Neutrophils # 6.0 (1.3-7.7) k/uL Lymphocytes # 3.6 (1.0-4.8) k/uL Monocytes # 0.5 (0-1.0) k/uL Eosinophils # 0.2 (0-0.7) k/uL Basophils # 0.1 (0-0.2) k/uL Sodium 139 (137-145) mmol/L Potassium 4.2 (3.5-5.1) mmol/L Chloride 102 (98-107) mmol/L Carbon Dioxide 25 (22-30) mmol/L Anion Gap 12 mmol/L BUN 13 (7-17) mg/dL Creatinine 0.89 (0.52-1.04) mg/dL Est GFR (CKD-EPI)AfAm >90 (>60 ml/min/1.73 sqM) Est GFR (CKD-EPI)NonAf 82 (>60 ml/min/1.73 sqM) Glucose 108 H (74-99) mg/dL Calcium 9.5 (8.4-10.2) mg/dL Total Bilirubin 0.3 (0.2-1.3) mg/dL AST 20 (14-36) U/L ALT 26 (4-34) U/L Alkaline Phosphatase 77 (38-126) U/L Total Protein 7.2 (6.3-8.2) g/dL Albumin 4.4 (3.5-5.0) g/dL Lipase 81 (23-300) U/L Urine Color Light Yellow Urine Appearance Clear (Clear) Urine pH 5.5 (5.0-8.0) Ur Specific [place] 1.009 (1.001-1.035) Urine Protein Negative (Negative) Urine Glucose (UA) Negative (Negative) Urine Ketones Negative (Negative) Urine Blood Negative (Negative) Urine Nitrite Negative (Negative) Urine Bilirubin Negative (Negative) Urine Urobilinogen <2.0 (<2.0) mg/dL Ur Leukocyte Esterase Negative (Negative) Urine HCG, Qual (Not Detectd) 08/07/22 Range/Units 23:10 WBC (3.8-10.6) k/uL RBC (3.80-5.40) m/uL Hgb (11.4-16.0) gm/dL Hct (34.0-46.0) % MCV (80.0-100.0) fL MCH (25.0-35.0) pg MCHC (31.0-37.0) g/dL RDW (11.5-15.5) % Plt Count (150-450) k/uL MPV Neutrophils % % Lymphocytes % % Monocytes % % Eosinophils % % Basophils % % Neutrophils # (1.3-7.7) k/uL Lymphocytes # (1.0-4.8) k/uL Monocytes # (0-1.0) k/uL Eosinophils # (0-0.7) k/uL Basophils # (0-0.2) k/uL Sodium (137-145) mmol/L Potassium (3.5-5.1) mmol/L Chloride (98-107) mmol/L Carbon Dioxide (22-30) mmol/L Anion Gap mmol/L BUN (7-17) mg/dL Creatinine (0.52-1.04) mg/dL Est GFR (CKD-EPI)AfAm (>60 ml/min/1.73 sqM) Est GFR (CKD-EPI)NonAf (>60 ml/min/1.73 sqM) Glucose (74-99) mg/dL Calcium (8.4-10.2) mg/dL Total Bilirubin (0.2-1.3) mg/dL AST (14-36) U/L ALT (4-34) U/L Alkaline Phosphatase (38-126) U/L Total Protein (6.3-8.2) g/dL Albumin (3.5-5.0) g/dL Lipase (23-300) U/L Urine Color Urine Appearance (Clear) Urine pH (5.0-8.0) Ur Specific [place] (1.001-1.035) Urine Protein (Negative) Urine Glucose (UA) (Negative) Urine Ketones (Negative) Urine Blood (Negative) Urine Nitrite (Negative) Urine Bilirubin (Negative) Urine Urobilinogen (<2.0) mg/dL Ur Leukocyte Esterase (Negative) Urine HCG, Qual Not Detected (Not Detectd) Disposition Clinical Impression: Pelvic pain, Hematometra Disposition: HOME SELF-CARE Condition: Stable Instructions (If sedation given, give patient instructions): Pelvic Pain in Women (ED) Additional Instructions: Please follow-up with your BUSINESS MANAGEMENT ASSOCIATE in regards to your diagnosis of hematometra. Alternate taking Motrin 600 mg (3 over the counter tablets) and the Tylenol threes every 4 hours. Return for any new or worsening symptoms Prescriptions: Acetaminophen-Codeine 300-30mg [Tylenol w/codeine #3] 1 tab PO Q4H PRN 3 Days #18 tablet PRN Reason: Pain Is patient prescribed a controlled substance at d/c from ED?: No Referrals: Mushtaq Alaniz MD [Primary Care Provider] - 1-2 days Colleen Burnette MD [STAFF PHYSICIAN] - 1-2 days Time of Disposition: 02:05
[2022-08-08 02:13] VITALS: BP 121/76; PULSE 72; RESP 16; TEMP 98.4
== END 2022-08-08 02:13 | disposition home or self-care (01) ==
LOC: EC 20:45
DX: N85.7 Hematometra (principal); Z91.09 Other allergy status, other than to drugs and biological substances
CPT/HCPCS: 36415; 76830; 80053; 81003; 81025; 83690; 85025; 93975; 99284

== ENCOUNTER → 2022-08-22 | Outpatient (CLI) | payer BC ==
[2022-08-22 20:01] LABS: Basophils # (A) 0.09 X 10*3/uL; Basophils % (A) 0.8 %; Eosinophils # (A) 0.15 X 10*3/uL; Eosinophils % (A) 1.3 %; HGB 13.9 d/dL; Lymphocytes # (A) 2.61 X 10*3/uL; Lymphocytes % (A) 22.9 %; MCHC 33.1 d/dL; MCV 93.8 FL; Mean Platelet Volume 9.9 FL; Monocytes # (A) 0.47 X 10*3/uL; Monocytes % (A) 4.1 %; NRBC Per 100 WBC 0 X 10*3/uL; Neutrophils # (A) 8.02 X 10*3/uL; Neutrophils % (A) 70.5 %; Platelet Count 298 X 10*3/uL; RBC 4.48 X 10*6/uL; RDW 12.6 %; WBC 11.38 X 10*3/uL
[2022-08-22 20:24] LABS: African American GFR (CKD) >90; Blood Urea Nitrogen 9.2 mg/dL; Carbon Dioxide 23.6 mmol/L; Chloride 100 mmol/L; Glucose 172 mg/dL; Non-African American GFR(CKD) >90; Potassium 4.7 mmol/L; Sodium 137 mmol/L
== END | disposition home or self-care (01) ==
LOC: LABPAT 11:05
PROVIDERS: ATTEND Obstetrics & Gynecology
DX: Z01.812 Encounter for preprocedural laboratory examination (principal); E11.9 Type 2 diabetes mellitus without complications; N94.6 Dysmenorrhea, unspecified; N80.00 Endometriosis of the uterus, unspecified; R94.31 Abnormal electrocardiogram [ECG] [EKG]
CPT/HCPCS: 80051; 82565; 82947; 84520; 85025; 87086; 93005

== ENCOUNTER 2022-08-30 11:08 | Day surgery (SDC) | payer BC ==
[~2022-08-30 11:08] MED LIST changes: +LIDOCAINE 1% (10MG/ML) FOR IV START INTRADERMA PRN; -MIDAZOLAM 2 MG/2 ML VIAL IV PRN; -ONDANSETRON 4 MG/2 ML VIAL IVP ONE; +ONDANSETRON 4 MG/2 ML VIAL IVP PRN; -Pre Op ABX Message 1 EACH MISC MISCELLANE ONE; +SCOPOLAMINE 1 MG/72 HR PATCH TRANSDERM ONE; -SCOPOLAMINE 1.5MG/72HR PATCH TRANSDERM ONE; +droPERidol 5 MG/2 ML VIAL IVP ONE
[2022-08-30] MEDS: LACTATED RINGERS 1,000 ML IV SCH (12:16)
[2022-08-30 12:22] LABS: Glucose,Whole Blood 110 mg/dL (70-110)
[2022-08-30] MEDS ORDERED: MIDAZOLAM 2 MG/2 ML VIAL IVP ONE (12:37)
[2022-08-30] MEDS ORDERED: SUCCINYLCHOLINE CHLORIDE 200 MG/10 ML VIAL IV ONE (13:49)
[2022-08-30] MEDS ORDERED: GLYCOPYRROLATE 0.2 MG/ML 2 ML VIAL ONE (13:49)
[2022-08-30] MEDS ORDERED: LIDOCAINE 2% INJ 20 MG/ML (2 ML VIAL) ONE (13:49)
[2022-08-30] MEDS ORDERED: MIDAZOLAM 2 MG/2 ML VIAL ONE (13:49)
[2022-08-30] MEDS ORDERED: fentaNYL (PF) 50 MCG/ML 2 ML AMP ONE (13:49)
[2022-08-30] MEDS ORDERED: PROPOFOL 10 MG/ML 20 ML VIAL IV ONE (13:49)
[2022-08-30] MEDS ORDERED: ROCURONIUM 10 MG/ML (5 ML VIAL) IV ONE (13:49)
[2022-08-30] MEDS ORDERED: KETOROLAC 15 MG/ML 1 ML VIAL ONE (13:49)
[2022-08-30] MEDS ORDERED: NEOSTIGMINE 1 MG/ML 10 ML VIAL ONE (13:49)
[2022-08-30] MEDS ORDERED: VASOPRESSIN 20 UNIT/ML 1 ML VIAL IM ONE (14:12)
[2022-08-30] MEDS ORDERED: BACITRACIN ZINC 500 UNIT/GM OINT 28.4 GM TUBE TOPICAL ONE ×2 (14:12→14:52)
--- NOTE | 2022-08-30 14:32 | P.ANPRN ---
Procedure Note - Anesthesia - Epidural/Spinal Spinal Time Out Performed: Yes Date of Procedure: 08/30/22 Procedure Start Time: 12:36 Procedure Stop Time: 12:39 Location of Patient: PreOp Indication: Acute Post-Operative Pain, Requested by Surgeon Sedation Type: Sedate with meaningful contact maintained Preparation: Sterile Prep Position: Sitting Needle Guage: 25 Events: Uneventful and Well Tolerated (duramorph 300 mics plus fentanyl 25 mics)
[2022-08-30] MEDS ORDERED: IBUPROFEN 600 MG TAB PO PRN (15:07)
[2022-08-30] MEDS ORDERED: SIMETHICONE 80 MG CHEWABLE PO PRN (15:07)
[2022-08-30] MEDS ORDERED: ZOLPIDEM 5 MG TAB PO PRN (15:07)
[2022-08-30] MEDS ORDERED: KETOROLAC 15 MG/ML 1 ML VIAL IVP PRN (15:07)
[2022-08-30] MEDS ORDERED: METOCLOPRAMIDE 5 MG/ML 2 ML VIAL IVP PRN (15:07)
[2022-08-30] MEDS ORDERED: diphenhydrAMINE 50 MG/ML 1 ML VIAL IVP PRN (15:07)
[2022-08-30] MEDS ORDERED: ONDANSETRON 4 MG/2 ML VIAL IVP PRN (15:07)
--- NOTE | 2022-08-30 15:07 | P.OP ---
Date of Procedure: 08/30/22 Preoperative Diagnosis: Severe cyclic dysmenorrhea, adenomyosis, hematometrial Postoperative Diagnosis: Normal-appearing ovaries bilaterally Procedure(s) Performed: Vaginal hysterectomy Anesthesia: ADILENEA Surgeon: Colleen Burnette Supervisor Chassis Assembly #1: Stacia Rodney Estimated Blood Loss (ml): 100 IV fluids (ml): 500 Urine output (ml): 200 Pathology: other (Cervix and uterus) Condition: stable Disposition: PACU Operative Findings: Normal-appearing ovaries bilaterally Description of Procedure: Patient is brought to the operating suite where a general anesthetic is administered after the spinal with Duramorph was given in the preoperative area. Patient is placed in the dorsal lithotomy position. The cervix, vagina, perineal body and lower abdominal singh are all prepped and draped in usual sterile fashion. The appropriate timeout is performed to assure proper patient and procedural identification. Antibiotics are given. Urine hCG is negative. Bladder is drained for approximate 200 mL of clear yellow urine. Weighted speculum was placed into the vagina. Anterior lip of the cervix is grasped with a double-tooth tenaculum. Cervix is injected circumferentially with a dilute Pitressin solution. A [place] blade scalpel is used circumferentially to incise the mucosa with a V positioning at 6:00. A sponge rolled finger is used to sweep the mucosa from the underlying fascial plane. At all times the mucosa swept well from the plane to avoid bladder and/or ureteral injury. Peritoneum is entered at 6:00 and suture tied with 2-0 Vicryl suture held with a hemostat. The large billed speculum is then placed into the vagina. The right uterosacral cardinal ligament is identified, clamped cut and suture ligated. It is held with a hemostat laterally. Same procedure i s carried out contralaterally. Uterine vasculature is now identified, clamped cut and suture ligated. 2 additional pedicles are taken superior to the vessels. Hemostasis is excellent. Peritoneum is entered at 12:00 and the uterus is "walked out" posteriorly. Nellie clamps are used across the final pedicles and the cervix and uterus are removed and sent to pathology for evaluation. The remaining pedicles are suture tied with 0 Vicryl in a Courtney stitch, flashed, held, and retied with 0 Vicryl as well. Sponge stick is used to visualize both ovaries, these appear normal to inspection and were left in situ per the patient's wishes. Again all pedicles are visualized and noted to be hemostatically intact, clean and dry. The shallow speculum was now placed back into the vagina and the 2-0 Vicryl suture at 6:00 is brought around in a pursestring fashion to close the peritoneum. The uterosacral cardinal ligaments are brought across to incorporate the opposite ligament as well as mucosa in the vagina is closed. 3 additional [id number] sutures are used of 0 Vicryl for final vaginal cuff closure. Hemostasis is very good. Vagina is packed with one-inch iodophor gauze with basic tracing. Bustillo catheter is replaced and the urine is clear. All sponge needle and instrument counts are correct. Patient is brought to the recovery room in very good condition with stable vital signs including blood pressure 99/59, pulse 78, 99% O2 saturation.
[2022-08-30 15:52] LABS: Glucose,Whole Blood 141 mg/dL (70-110)
[2022-08-30] MEDS ORDERED: LACTATED RINGERS 1,000 ML IV ONE (16:14)
[2022-08-30] MEDS ORDERED: ACETAMINOPHEN IV (For NPO) 1,000 MG/100 ML VIAL IVPB ONE (16:33)
[2022-08-31] MEDS: LACTATED RINGERS 1,000 ML IV SCH (07:04)
[2022-08-31 07:50] LABS: Glucose,Whole Blood 114 mg/dL (70-110)
--- NOTE | 2022-08-31 08:00 | P.DS ---
Providers Date of admission: t 08/31/22 Expected date of discharge: 08/31/22 Attending physician: Colleen Burnette Primary care physician: Mushtaq Alaniz [facility] Course: This is a 37-year-old female who presented status post endometrial ablation with severe cyclic dysmenorrhea and he may to weeks and noted sonographically. She requested vaginal hysterectomy. All risks and benefits reviewed. Please see dictated history and physical for details. Under my care yesterday she underwent vaginal hysterectomy, ovaries appear normal and were left in situ. She did well intraoperatively, vaginal packing and Bustillo catheter placed. Please see dictated operative note for details. This morning the patient is doing very well. The vaginal packing and Bustillo catheter were removed last night. Patient is passing gas, ambulating, tolerating regular food, voiding. She has no pain, no CVA tenderness, no vaginal bleeding. Scant vaginal discharge is noted. Abdomen is soft and nontender, vital signs are stable, extremities are negative, patient is judged to be in very good condition for discharge home and is requesting same. She will follow-up with me in the office in 2 weeks. No heavy lifting, no intercourse tampons or douching, [id number]-[id number] pain medications as needed. She will call with any brisk vaginal bleeding, any issues with urination or defecation, with any pain not alleviated by [id number] products, or indeed with any concerns. Assessment: Doing well first postoperative day Patient Condition at Discharge: Good Plan - Discharge Summary Discharge Rx Participant: No New Discharge Prescriptions: No Action clonazePAM 0.5 mg PO HS Fluticasone Nasal [place] [Flonase Nasal [place]] 1 spray EA NOSTRIL DAILY PRN PRN Reason: allergies metFORMIN HCL ER [Glucophage XR] 500 mg PO HS Cholecalciferol [Vitamin D3 (25 Mcg = 1000 Iu)] 50 mcg PO HS Ibuprofen [Motrin] 400 mg PO Q6HR PRN PRN Reason: Pain Rosuvastatin [Crestor] 10 mg PO HS Acetaminophen [Tylenol Extra Strength] 1,000 mg PO Q4-6H PRN PRN Reason: Pain Discharge Medication List Cholecalciferol [Vitamin D3 (25 Mcg = 1000 Iu)] 50 mcg PO HS 11/16/20 [History] Fluticasone Nasal [place] [Flonase Nasal [place]] 1 spray EA NOSTRIL DAILY PRN 11/16/20 [History] clonazePAM 0.5 mg PO HS 11/16/20 [History] Acetaminophen [Tylenol Extra Strength] 1,000 mg PO Q4-6H PRN 08/24/22 [History] Ibuprofen [Motrin] 400 mg PO Q6HR PRN 08/24/22 [History] Rosuvastatin [Crestor] 10 mg PO HS 08/24/22 [History] metFORMIN HCL ER [Glucophage XR] 500 mg PO HS 08/24/22 [History] Follow up Appointment(s)/Referral(s): Colleen Burnette MD [STAFF PHYSICIAN] - 2 Weeks Patient Instructions/Handouts: *Surgery [facility] - Scopalamine Patch Instructions Discharge Disposition: HOME SELF-CARE
[2022-08-31 08:01] VITALS: BP 108/72; PULSE 72; RESP 16; TEMP 98.5
[2022-08-31] MEDS ORDERED: ACETAMINOPHEN TAB 325 MG TAB PO PRN (15:09)
== END 2022-08-31 09:15 | disposition home or self-care (01) ==
LOC: OR 11:08 → 4FBP 15:06 → OR 08-31 09:15
PROVIDERS: ATTEND Obstetrics & Gynecology
DX: N72 Inflammatory disease of cervix uteri (principal); N88.8 Other specified noninflammatory disorders of cervix uteri; N80.03 Adenomyosis of the uterus; E11.9 Type 2 diabetes mellitus without complications; N94.6 Dysmenorrhea, unspecified; G89.18 Other acute postprocedural pain; Z98.51 Tubal ligation status; Z83.3 Family history of diabetes mellitus; Z79.899 Other long term (current) drug therapy
CPT/HCPCS: 58260; 64999; 86900; 86901; 86850; 88307; J2250; J0330; J1100; J2710; J0690; J2405; J3010; J0131; J1885; J2704; J2001

== ENCOUNTER → 2023-01-23 | Outpatient (CLI) | payer BC ==
--- NOTE | 2023-01-24 18:36 | MM ---
Reason for Exam: Screening (asymptomatic). Last mammogram was performed 2 year(s) and 7 month(s) ago. Patient History: Menarche at age 11. First Full-Term at age 17. Left ovary removed at age 37. Right ovary removed at age 37. Hysterectomy at age 37. Postmenopausal. Hormonal Contraceptives, from age 13 until age 20. Maternal cousin had breast cancer. Maternal aunt had breast cancer. Risk Values: Xochilt 5 year model risk: 0.4%. NCI Lifetime model risk: 7.4%. Prior Study Comparison: 03/06/2018 Bilateral Screening Mammogram, [facility]. 07/03/2020 Bilateral Screening Mammogram, [facility]. 07/09/2020 Right Diagnostic Ultrasound, [facility]. Tissue Density: The breast tissue is heterogeneously dense. This may lower the sensitivity of mammography. Findings: Analyzed By CAD. Unchanged areas of bilateral asymmetric density. There is no suspicious group of microcalcifications or new suspicious mass in either breast. Overall Assessment: Benign, BI-RAD 2 Management: Screening Mammogram of both breasts in 1 year. . Patient should continue monthly self-breast exams. A clinical breast exam by your physician is recommended on an annual basis. This exam should not preclude additional follow-up of suspicious palpable abnormalities. Note on Xochilt scores and lifetime risk: 1. A Xochilt score greater than 3% is considered moderate risk. If this is the case, consider specialist referral to assess eligibility for a risk reducing agent. 2. If overall lifetime risk for the development of breast cancer is 20% or higher, the patient may qualify for future screening with alternating mammogram and breast MRI. Electronically signed and approved by: Duane Last M.D. Radiologist
== END | disposition home or self-care (01) ==
LOC: RADMAMWWP 12:53
PROVIDERS: ATTEND Family Medicine
DX: Z12.31 Encounter for screening mammogram for malignant neoplasm of breast (principal); Z78.0 Asymptomatic menopausal state; Z80.3 Family history of malignant neoplasm of breast
CPT/HCPCS: 77067

== ENCOUNTER → 2024-09-09 | Outpatient (CLI) | payer BC ==
--- NOTE | 2024-09-09 09:29 | MM ---
Reason for Exam: Screening (asymptomatic). Last mammogram was performed 1 year(s) and 7 month(s) ago. Patient History: Menarche at age 11. First Full-Term at age 17. Left ovary removed at age 37. Right ovary removed at age 37. Hysterectomy at age 37. Postmenopausal. Hormonal Contraceptives, from age 13 until age 20. Maternal cousin had breast cancer. Maternal aunt had breast cancer. Risk Values: Xochilt 5 year model risk: 0.4%. NCI Lifetime model risk: 7.3%. Prior Study Comparison: 03/06/2018 Bilateral Screening Mammogram, [facility]. 07/03/2020 Bilateral Screening Mammogram, [facility]. 01/23/2023 Bilateral MG screening mammo w CAD, [facility]. Tissue Density: The breasts are heterogeneously dense, which may obscure small masses. Findings: Analyzed By CAD. Right breast: There is no suspicious group of microcalcifications or new suspicious mass. Left breast: Focal asymmetry left breast CC view only 6.7 cm the nipple. Overall Assessment: Incomplete: need additional imaging evaluation, BI-RAD 0 Management: Diagnostic Mammogram of the left breast. Spot compression imaging left breast cc view medial posterior depth and MLO view both superior and inferiorly. [facility] will attempt to contact patient to return for supplemental views and ultrasound if indicated. Patient should continue monthly self-breast exams. A clinical breast exam by your physician is recommended on an annual basis. This exam should not preclude additional follow-up of suspicious palpable abnormalities. Note on Xochilt scores and lifetime risk: 1. A Xochilt score greater than 3% is considered moderate risk. If this is the case, consider specialist referral to assess eligibility for a risk reducing agent. 2. If overall lifetime risk for the development of breast cancer is 20% or higher, the patient may qualify for future screening with alternating mammogram and breast MRI. [facility], , 09/09/2024 9:17 AM. Electronically signed and approved by: Faraz Moscoso DO
== END | disposition home or self-care (01) ==
LOC: RADMAMWWP 08:45
PROVIDERS: ATTEND Family Medicine
DX: Z12.31 Encounter for screening mammogram for malignant neoplasm of breast (principal); R92.333 Mammographic heterogeneous density, bilateral breasts; Z78.0 Asymptomatic menopausal state; Z80.3 Family history of malignant neoplasm of breast; Z92.0 Personal history of contraception
CPT/HCPCS: 77067

== ENCOUNTER → 2024-09-12 | Outpatient (CLI) | payer BC ==
--- NOTE | 2024-09-12 11:38 | MM ---
Reason for Exam: Additional evaluation requested from abnormal screening. Last screening mammogram was performed less than 1 month ago. Patient History: Menarche at age 11. First Full-Term at age 17. Left ovary removed at age 37. Right ovary removed at age 37. Hysterectomy at age 37. Postmenopausal. Hormonal Contraceptives, from age 13 until age 20. Maternal cousin had breast cancer. Maternal aunt had breast cancer. Risk Values: Xochilt 5 year model risk: 0.4%. NCI Lifetime model risk: 7.3%. Prior Study Comparison: 07/03/2020 Bilateral Screening Mammogram, [facility]. 01/23/2023 Bilateral MG screening mammo w CAD, [facility]. 09/09/2024 Bilateral MG screening mammo w CAD, [facility]. Tissue Density: Left: The breasts are heterogeneously dense, which may obscure small masses. Findings: Analyzed By CAD. Area of concern/asymmetry compresses out on spot compression imaging. No suspicious masses, calcifications or distortions. Overall Assessment: Benign, BI-RAD 2 Management: Screening Mammogram of both breasts in 1 year. Results were given to the patient verbally at the time of exam. Patient should continue monthly self-breast exams. A clinical breast exam by your physician is recommended on an annual basis. This exam should not preclude additional follow-up of suspicious palpable abnormalities. Note on Xochilt scores and lifetime risk: 1. A Xochilt score greater than 3% is considered moderate risk. If this is the case, consider specialist referral to assess eligibility for a risk reducing agent. 2. If overall lifetime risk for the development of breast cancer is 20% or higher, the patient may qualify for future screening with alternating mammogram and breast MRI. [facility], , 09/12/2024 11:35 AM. Electronically signed and approved by: Faraz Moscoso DO
== END | disposition home or self-care (01) ==
LOC: RADMAMWWP 10:54
PROVIDERS: ATTEND Family Medicine
DX: R92.8 Other abnormal and inconclusive findings on diagnostic imaging of breast (principal); R92.331 Mammographic heterogeneous density, right breast; Z78.0 Asymptomatic menopausal state; Z80.3 Family history of malignant neoplasm of breast; Z92.0 Personal history of contraception
CPT/HCPCS: 77061; 77065